=== PATIENT | male | born 1965 | race Caucasian/White ===

== ENCOUNTER 2018-12-14 08:22 | Day surgery (SDC) | payer OTHER ==
[~2018-12-14 08:22] MED LIST: PROPOFOL INJ 200 MG/20 ML VIAL IV ONE
[2018-12-14 09:36] VITALS: BP 130/83
--- NOTE | 2018-12-14 12:50 | Operative Report ---
Operative Report DATE OF SURGERY: 12/14/18 Operative Report: The risks benefits and alternatives of the procedure explained to the patient in detail and informed consent is obtained.A GIF Olympus video scope was inserted into the patient's mouth and hypopharynx, the esophagus is identified intubated and insufflated, the scope was then advanced through the esophagus stomach and duodenum, retroflexion maneuver is done, the esophagus stomach and first and second portions of the duodenum examined. PREOPERATIVE DIAGNOSIS: Epigastric pain, noncardiac chest pain POSTOPERATIVE DIAGNOSIS: Hiatal hernia. Esophagitis versus Marc's status post biopsy. Gastritis status post biopsy without Helicobacter pylori OPERATION: EGD with biopsy SURGEON: SWAPNIL PINEDA ANESTHESIA: LMAC TISSUE REMOVED OR ALTERED: As noted above. COMPLICATIONS: None. ESTIMATED BLOOD LOSS: None. INTRAOPERATIVE FINDINGS: As noted above. PROCEDURE: Patient tolerated the procedure well. No immediate postprocedure complications are noted. Patient is discharged in good condition. Discharge date 12/14/2018. Discharge diet: Regular. Discharge activity: Regular. 2 to 3-week follow-up to discuss findings. Patient is instructed to call the office or proceed to the emergency room should there be any further questions. Wait on the pathology.
== END 2018-12-14 09:35 | disposition home or self-care (01) ==
LOC: END 08:22
PROVIDERS: ATTEND Internal Medicine Gastroenterology
DX: K29.50 Unspecified chronic gastritis without bleeding (principal); K44.9 Diaphragmatic hernia without obstruction or gangrene; I20.9 Angina pectoris, unspecified; G47.33 Obstructive sleep apnea (adult) (pediatric); R07.89 Other chest pain; I10 Essential (primary) hypertension; Z87.891 Personal history of nicotine dependence; Z79.899 Other long term (current) drug therapy
CPT/HCPCS: 43239; 88305 ×2; J2704; 731

== ENCOUNTER → 2019-03-15 | Outpatient (CLI) | payer OTHER ==
--- NOTE | 2019-03-15 16:42 | RADIOLOGY REPORT (SQ) ---
EXAM DESCRIPTION: CHEST PA/LATERAL COMPLETED DATE/TIME: 03/15/2019 3:37 pm REASON FOR STUDY: ESSENTIAL HYPERTENSION COMPARISON: None. EXAM PARAMETERS: NUMBER OF VIEWS: two views TECHNIQUE: Digital Frontal and Lateral radiographic views of the chest acquired. RADIATION DOSE: NA LIMITATIONS: none FINDINGS: LUNGS AND PLEURA: No opacities, masses or pneumothorax. No pleural effusion. MEDIASTINUM AND HILAR STRUCTURES: No masses or contour abnormalities. HEART AND VASCULAR STRUCTURES: Heart normal size. No evidence for failure. BONES: No acute findings. HARDWARE: None in the chest. OTHER: No other significant finding. IMPRESSION: NO SIGNIFICANT RADIOGRAPHIC FINDING IN THE CHEST. TECHNICAL DOCUMENTATION: JOB ID: [id number] [employer]- All Rights Reserved Reading location - IP/workstation name: [email or web address]
--- NOTE | 2019-03-15 16:43 | RADIOLOGY REPORT (SQ) ---
EXAM DESCRIPTION: T SPINE AP/LAT COMPLETED DATE/TIME: 03/15/2019 3:37 pm REASON FOR STUDY: BILATERAL THORACIC BACK PAIN, UNSPECIFIED CHRONICITY I10 ESSENTIAL (PRIMARY) HYPE RTENSION M54.6 PAIN IN THORACIC SPINE COMPARISON: None. NUMBER OF VIEWS: Two views. TECHNIQUE: AP and lateral radiographic images acquired of the thoracic spine. LIMITATIONS: None. FINDINGS: MINERALIZATION: Normal. ALIGNMENT: Mild scoliosis. VERTEBRAE: No fracture or bone lesion. Maintained height, normal segmentation. DISCS: No significant loss of height or significant narrowing. No large osteophytes. HARDWARE: None in the spine. MEDIASTINUM AND SOFT TISSUES: Normal heart size and aortic contour. No soft tissue abnormality. VISUALIZED LUNG PARRA: Clear. OTHER: No other significant finding. IMPRESSION: Mild scoliosis. TECHNICAL DOCUMENTATION: JOB ID: [id number] [employer]- All Rights Reserved Reading location - IP/workstation name: [email or web address]
== END ==
LOC: OD 14:53
PROVIDERS: ATTEND Nurse Practitioner Family
DX: M54.6 Pain in thoracic spine (principal); M41.84 Other forms of scoliosis, thoracic region; I10 Essential (primary) hypertension
CPT/HCPCS: 71046; 72070